=== PATIENT | male | born 1985 | race Caucasian/White ===

== ENCOUNTER 2020-08-05 12:31 | Observation (INO) ==
[2020-08-05] MEDS ORDERED: Bupivacaine-MPF 0.25% 10 ML VIAL ONE (12:54)
[2020-08-05] MEDS ORDERED: Tranexamic Acid 1,000 MG/10 ML VIAL ONE (12:54)
[2020-08-05] MEDS ORDERED: *HR* OxyCODONE/APAP 5/325 TABLET PO PRN (12:54)
[2020-08-05] MEDS ORDERED: *HR* EPINEPHrine 30 MG/30 ML MDV ONE (12:54)
[2020-08-05] MEDS ORDERED: Ondansetron 4 MG/2 ML VIAL IVP PRN (12:54)
[2020-08-05] MEDS ORDERED: Ringers Solution, Lactated 1,000 ML IVC SCH (13:00)
[2020-08-05] MEDS ORDERED: Clindamycin 900 MG/50 ML 900 MG/50 ML IV.SOLN IVPB ONE (13:04)
[2020-08-05] MEDS ORDERED: *HR* Propofol 200 MG/20 ML VIAL IVP ONE (13:51)
[2020-08-05] MEDS ORDERED: *HR* Midazolam HCl 2 MG/2 ML VIAL ONE (13:51)
[2020-08-05] MEDS ORDERED: *HR* FentaNYL (PF) 100 MCG/2 ML VIAL ONE (13:51)
[2020-08-05] MEDS ORDERED: Lidocaine/EPI 1:100k 1% 50 ML VIAL ONE (14:34)
[2020-08-05] MEDS ORDERED: Oxymetazoline Nasal SPRAY BOTTLE NS ONE (14:40)
[2020-08-05] MEDS ORDERED: Ondansetron 4 MG/2 ML VIAL ONE (16:20)
[2020-08-05] MEDS ORDERED: Neostigmine Methylsulfate 3 MG/3 ML SYRINGE ONE (18:11)
[2020-08-05] MEDS: *HR* HYDROmorphone PF 0.5 MG/0.5 ML SYRINGE IVP PRN ×4 (18:26→18:41)
[2020-08-05] MEDS ORDERED: *HR* OxyCODONE/APAP 5/325 TABLET PO ONE (19:17)
[2020-08-05] MEDS ORDERED: 0.9 % Sodium Chloride 1,000 ML IVC SCH (22:07)
[2020-08-06] MEDS: *HR* OxyCODONE Immed Rel 5 MG TABLET PO PRN ×2 (00:53→07:25)
[2020-08-06] MEDS: Ondansetron 4 MG/2 ML VIAL IVP PRN ×2 (02:26→10:24)
[2020-08-06 07:03] VITALS: BP 117/83
== END 2020-08-06 10:29 | disposition home or self-care (01) ==
LOC: 3BNU 12:31 → SAMDAY 12:31
PROVIDERS: ADMIT Otolaryngology Facial Plastic Surgery; ATTEND Otolaryngology Facial Plastic Surgery